=== PATIENT | male | born 1945 | race African-American/Black ===

== ENCOUNTER 2016-05-19 10:30 | Outpatient (RCR) | payer OTHER ==
[~2016-05-19 10:30] MED LIST: AMBIEN10 MG PO; AMLODIPINE BESYL5 MG PO; FLONASE1 SPRAYS NASAL; METAMUCIL425 GM PO; NORCO1 E1 ORAL; PROPRANOLOL HCL40 MG PO; TESTOSTERO200 MG/1 M IM; VICODIN ES 7.51 EACH PO; VITAMIN B-121000 MC2 SL; VITAMIN C250 MG ORAL; VITAMIN D-32000 UNI1 PO
== END 2016-05-22 | disposition home or self-care (01) ==
LOC: PTY 10:30
DX: M23.41 Loose body in knee, right knee (principal); M94.261 Chondromalacia, right knee
CPT/HCPCS: 97110; 97161; G0283

== ENCOUNTER 2016-05-29 08:30 | Outpatient (RCR) | payer OTHER | END 2016-06-21 | disposition home or self-care (01) | LOC: PTY 08:30 | DX: M23.41 Loose body in knee, right knee (principal); M94.261 Chondromalacia, right knee | CPT/HCPCS: 97110; 97140; G0283 ==

== ENCOUNTER 2016-06-23 14:30 | Outpatient (RCR) | payer OTHER | END 2016-07-22 | disposition home or self-care (01) | LOC: PTY 14:30 | DX: M23.41 Loose body in knee, right knee (principal); M94.261 Chondromalacia, right knee | CPT/HCPCS: 97110; 97140; G0283 ==